=== PATIENT | female | born 1985 | race Caucasian/White ===

== ENCOUNTER 2016-07-05 08:33 | Emergency (ER) | payer BC ==
[~2016-07-05] VITALS: Ht 177.8 cm; Wt 68.0 kg
[2016-07-05] MEDS ORDERED: NORE0.357 (08:51)
--- NOTE | 2016-07-05 09:50 | Diagnostic Imaging Report ---
Clinical indication: Patient fell down the steps this morning. Patient complains of pain on lateral side and ankle area. Patient has swelling of ankle bone. No bruising seen. Exams: 1: X-ray of the left foot, 3 views. 2: X-ray of the left ankle, 3 views. Comparison: None. Findings: There are curvilinear flecks of calcification seen dorsal to the navicular bone and talar neck/head region seen on the lateral views of the left foot and ankle. These are concerning for avulsion fractures. There is soft tissue swelling seen dorsal to the region. There are no other areas of fracture or dislocation seen involving the left foot or ankle. Ankle mortise and syndesmotic joints are unremarkable. There is soft tissue thickening seen medially adjacent to the first MTP joint which may be related to bunion with mild hallux valgus deformity seen. Impression: 1: There are small flecks of calcification seen dorsally adjacent to the talar head/neck junction region and navicular bone concerning for avulsion fractures. 2: There is no other concern for fracture or dislocation involving left foot or ankle. 3: Mild hallux valgus deformity. Dictated by: Dictated on workstation # [id number]
--- NOTE | 2016-07-05 09:55 | ED Lower Extremity ---
General Chief Complaint: Lower Extremity Stated Complaint: FALL/LEFT ANKLE INJURY Nursing Triage Note: AMBULATED TO ROOM 08 WITH COMPLAINTS OF LEFT ANKLE ET LOWER LEG PAIN AFTER FALLING DOWN X2 STAIRS THIS AM. STATES SHE DID NOT HIT HER HEAD. Nursing Sepsis Screen: No Definite Risk Source: patient Exam Limitations: no limitations History of Present Illness Time seen by provider: 09:15 Initial Comments Here with report of left ankle left foot pain after falling down 2 stairs this morning. She states that she tripped from the dog. Complains of pain to the left foot and ankle with some radiation of the left leg. Denies other injury. Does note bruising to the lateral aspect of the foot. Onset: this morning Severity: moderate Pain/Injury Location: left foot, left ankle Method of Injury: fell, twisted Modifying Factors: Improves With Immobilization, Worse With Movement Allergies and Home Medications Allergies Coded Allergies: No Known Drug Allergies (Unverified , 03/21/14) Home Medications Norethindrone 0.35 Mg Tablet, #84 (Reported) Constitutional: see HPI, No chills, No fever Respiratory: no symptoms reported Cardiovascular: no symptoms reported Musculoskeletal: see HPI, joint pain, joint swelling, muscle pain, muscle stiffness Skin: see HPI, change in color, No lesions Psychiatric/Neurological: No Symptoms Reported Past Iiqfkoj-Acdurr-Wpctqx Hx Patient Social History Alcohol Use: Denies Use Recreational Drug Use: No Smoking Status: Never a Smoker Recent Foreign Travel: No Contact w/Someone Who Travel: No Recent Infectious Disease Expo: No Recent Hopitalizations: Yes (GAVE ) Immunizations Up To Date Date of Influenza Vaccine: Dec 31, 2013 Surgeries HX Surgeries: No Respiratory Hx Respiratory Disorders: No Cardiovascular Hx Cardiac Disorders: No Neurological Hx Neurological Disorders: No Genitourinary Hx Genitourinary Disorders: No Gastrointestinal Hx Gastrointestinal Disorders: No Musculoskeletal Hx Musculoskeletal Disorders: No Endocrine Hx Endocrine Disorders: No HEENT HX ENT Disorders: No Cancer Hx Cancer: No Psychosocial Hx Psychiatric Problems: No Reviewed Nursing Assessment Reviewed/Agree w Nursing PMH: Yes Family Medical History Significant Family History: No Pertinent Family Hx Physical Exam Vital Signs Vital Sign - Last 12Hours 07/05/16 08:40 Temp 98.0 Pulse 73 Resp 16 B/P (MAP) 116/67 Pulse Ox 98 O2 Delivery Room Air Capillary Refill : Less Than 3 Seconds General Appearance: WD/WN, no apparent distress Cardiovascular: regular rate, rhythm, no murmur Respiratory: lungs clear, normal breath sounds Legs: left leg soft tissue tenderness (distal tib-fib area), left leg swelling (distal tib-fib area) Ankles: left ankle ecchymosis, left ankle pain, left ankle soft tissue tenderness, left ankle swelling Feet: left foot ecchymosis, left foot pain, left foot soft tissue tenderness, left foot swelling Neurologic/Psychiatric: alert, oriented x 3 Skin: ecchymosis Progress/Results/Core Measures Results/Orders My Orders Orders - KHANG JOHNS MD Foot, Left, 3 Views (07/05/16 09:25) Ankle, Left, 3 Views (07/05/16 09:25) Vital Signs/I&O Vital Sign - Last 12Hours 07/05/16 08:40 Temp 98.0 Pulse 73 Resp 16 B/P (MAP) 116/67 Pulse Ox 98 O2 Delivery Room Air Blood Pressure Mean: 83 Progress Note : Progress Note Seen and evaluated. X-ray left foot and ankle ordered. Monitor patient. Patient declined pain medicine at this time. She has crutches with her. We will assist with adjustment to her size. 1015: Walking boot placed. Patient informed of concerns for avulsion-type fracture. She will follow-up with orthopedist of her choosing. Discharged home with return precautions. Patient verbalize understanding instructions and agreement with plan. Diagnostic Imaging Diagonstic Imaging: Xray Plain Films/CT/US/NM/MRI: ankle Comments NAME: ONDINA VELAZQUEZ MED REC#: [id number] PT STATUS: REG ER : 1985 PHYSICIAN: KHANG JOHNS MD ADMIT DATE: 07/05/16/ER Signed Date of Exam: 07/05/16 ANKLE, LEFT, 3 VIEWS Clinical indication: Patient fell down the steps this morning. Patient complains of pain on lateral side and ankle area. Patient has swelling of ankle bone. No bruising seen. Exams: 1: X-ray of the left foot, 3 views. 2: X-ray of the left ankle, 3 views. Comparison: None. Findings: There are curvilinear flecks of calcification seen dorsal to the navicular bone and talar neck/head region seen on the lateral views of the left foot and ankle. These are concerning for avulsion fractures. There is soft tissue swelling seen dorsal to the region. There are no other areas of fracture or dislocation seen involving the left foot or ankle. Ankle mortise and syndesmotic joints are unremarkable. There is soft tissue thickening seen medially adjacent to the first MTP joint which may be related to bunion with mild hallux valgus deformity seen. Impression: 1: There are small flecks of calcification seen dorsally adjacent to the talar head/neck junction region and navicular bone concerning for avulsion fractures. 2: There is no other concern for fracture or dislocation involving left foot or ankle. 3: Mild hallux valgus deformity. Dictated by: Dictated on workstation # [id number] Dict: 07/05/16 0943 Trans: 07/05/16 0947 Interpreted by: ADIS MURPHY MD Diagonstic Imaging: Xray Plain Films/CT/US/NM/MRI: other (foot) Comments NAME: ONDINA VELAZQUEZ [facility] REC#: [id number] PT STATUS: REG ER : 1985 PHYSICIAN: KHANG JOHNS MD ADMIT DATE: 07/05/16/ER Signed Date of Exam: 07/05/16 FOOT, LEFT, 3 VIEWS Clinical indication: Patient fell down the steps this morning. Patient complains of pain on lateral side and ankle area. Patient has swelling of ankle bone. No bruising seen. Exams: 1: X-ray of the left foot, 3 views. 2: X-ray of the left ankle, 3 views. Comparison: None. Findings: There are curvilinear flecks of calcification seen dorsal to the navicular bone and talar neck/head region seen on the lateral views of the left foot and ankle. These are concerning for avulsion fractures. There is soft tissue swelling seen dorsal to the region. There are no other areas of fracture or dislocation seen involving the left foot or ankle. Ankle mortise and syndesmotic joints are unremarkable. There is soft tissue thickening seen medially adjacent to the first MTP joint which may be related to bunion with mild hallux valgus deformity seen. Impression: 1: There are small flecks of calcification seen dorsally adjacent to the talar head/neck junction region and navicular bone concerning for avulsion fractures. 2: There is no other concern for fracture or dislocation involving left foot or ankle. 3: Mild hallux valgus deformity. Dictated by: Dictated on workstation # [id number] Dict: 07/05/1644 Trans: 07/05/16946 Interpreted by: ADIS MURPHY MD Electronically signed by: ADIS MURPHY MD 07/05/16946 Departure Impression Impression: Primary Impression: Avulsion fracture of talus Qualified Codes: S92.155A - Nondisplaced avulsion fracture (chip fracture) of left talus, initial encounter for closed fracture Disposition: HOME, SELF-CARE Condition: Improved Departure-Patient Inst. Decision time for Depature: 10:18 Referrals: JAYME VAUGHAN MD, BRIAN J MD NO,LOCAL PHYSICIAN (PCP) Primary Care Physician OTTO SHIELDS MICHAEL P MD Patient Instructions: Ankle Sprain (DC) Add. Discharge Instructions: All discharge instructions reviewed with patient and/or family. Voiced understanding. You have avulsion type fracture of the ligaments to the lateral aspect of the left ankle. You should follow-up with an orthopedist of your choice. Call today to set up appointment. Use ice packs to area of concern 20 minutes per hour to reduce swelling as needed over the next couple of days. Use walking boot when moving around. You do not need to wear this while sleeping. Use crutches to assist with walking for the next several days and then as needed. You may take ibuprofen 600 mg every 8 hours as needed for pain. You may take Tylenol 1000 mg every 8 hours as needed for pain. Return for worse pain, swelling, numbness or tingling or other concerns as needed. KHANG JOHNS MD Jul 05, 2016 09:55
[2016-07-05 10:30] VITALS: BP 116/67
== END 2016-07-05 10:30 | disposition home or self-care (01) ==
LOC: EDUNIT# 08:33 → ER 08:36
DX: S92.155A Nondisplaced avulsion fracture (chip fracture) of left talus, initial encounter for closed fracture (principal); W10.9XXA Fall (on) (from) unspecified stairs and steps, initial encounter; Y92.009 Unspecified place in unspecified non-institutional (private) residence as the place of occurrence of the external cause; Y99.8 Other external cause status
CPT/HCPCS: 73610; 73630; 99283

== ENCOUNTER 2022-02-04 04:14 | Emergency (ER) | payer BC ==
[~2022-02-04] VITALS: Ht 160 cm; Wt 61.2 kg
[~2022-02-04 04:14] MED LIST: NORE0.357
[2022-02-04] MEDS ORDERED: ONDANSETRON 4 MG (ZOFRAN) ORAL DISSOLVE TAB PO STA (04:34)
--- NOTE | 2022-02-04 04:36 | ED Fall/Injury ---
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 STATES SHE "PASSED OUT AND WOKE UP ON THE FLOOR". Source: patient Exam Limitations: no limitations History of Present Illness Date Seen by Provider: Feb 04, 2022 Time Seen by Provider: 04:25 Initial Comments 36-year-old female presents to the emergency department via private vehicle after she fell, striking the left side of her head on the bathtub. She states she was not feeling well and got up as she had to have a bowel movement and was feeling nauseated. She clammy, sweaty while she was sitting on the toilet. She got up and immediately passed out. She woke up and was bleeding from the left side of her head. She has no neck pain no other injuries. She is unclear when her last tetanus shot was. She is still feeling slightly nauseated but otherwise feels well. She has not vomited. No blurred or double vision. No upper or lower extremity weakness numbness or tingling. She did not have any chest pain or shortness of breath prior to passing out. Allergies and Home Medications Allergies Coded Allergies: No Known Drug Allergies (Unverified , 03/21/14) Patient Home Medication List Home Medication List Reviewed: Yes Norethindrone (Jolivette) 0.35 Mg Tablet, (Reported) Entered as Reported by: SAKSHI MOORE on 07/05/16 0851 Ondansetron (Ondansetron Odt) 8 Mg Tab.rapdis, 8 MG SL Q4H PRN for NAUSEA /VOMITING Prescribed by: PANCHO CH MD on 02/04/22 0437 Review of Systems Review of Systems Constitutional: no symptoms reported Eyes: No Symptoms Reported Ears, Nose, Mouth, Throat: no symptoms reported Respiratory: no symptoms reported Cardiovascular: no symptoms reported Gastrointestinal: no symptoms reported Genitourinary: no symptoms reported Musculoskeletal: other (Pain with the left side of her head) Skin: other (Laceration, bleeding) Psychiatric/Neurological: Headache, Other (Syncope) Past Ajnyiwr-Xceqrt-Dlorod Hx Patient Social History Tobacco Use?: No Use of E-Cig and/or Vaping dev: No Substance use?: No Alcohol Use?: No Alcohol Frequency: Once in a while Immunizations Up To Date COVID19 Vaccine Cloth Bin Packer: LESLEYNhi Family Medical History Reviewed Nursing Family Hx No Pertinent Family Hx Physical Exam Vital Signs Vital Signs - First Documented 02/04/22 04:22 Temp 35.9 Pulse 65 Resp 16 B/P (MAP) 102/69 (80) Pulse Ox 98 O2 Delivery Room Air Capillary Refill : Height, Weight, BMI Height: 5'10.00" Weight: 150lbs. oz. 68.990013vy; BMI Method:Stated General Appearance: WD/WN, no apparent distress HEENT: PERRL/EOMI, normal ENT inspection, TMs normal, pharynx normal Neck: non-tender, full range of motion, supple, normal inspection Cardiovascular: regular rate, rhythm, no edema, no gallop, no JVD, no murmur Respiratory: chest non-tender, lungs clear, normal breath sounds, no respiratory distress, no accessory muscle use Gastrointestinal: normal bowel sounds, non tender, soft, no organomegaly, no pulsatile mass Back: normal inspection, no vertebral tenderness Extremities: normal range of motion, non-tender, normal inspection, no pedal edema, no calf tenderness, normal capillary refill Neurologic/Psychiatric: steam gigger II-XII nml as tested, no motor/sensory deficits, alert, normal mood/affect, oriented x 3 Skin: other (2 cm laceration left anterior scalp. Galea is intact.) Lymphatic: no adenopathy Procedures/Interventions Wound Location: Scalp Wound Length (cm): 2 Staple Repair: Stapler 35W Number of Sutures: 3 Progress/Results/Core Measures Results/Orders My Orders Orders - PANCHO CH DO Ondansetron Oral Dissolve Tab (Zofran (02/04/22 04:34) Dipht,Pertuss(Acell),Tet Adult (Boostrix (02/04/22 04:45) Lidocaine 1% Inj 10 Ml (Xylocaine 1% Inj (02/04/22 04:45) Hydrocodone/Apap 5/325 Tablet (Lortab 5 (02/04/22 04:45) Vital Signs/I&O 02/04/22 04:22 Temp 35.9 Pulse 65 Resp 16 B/P (MAP) 102/69 (80) Pulse Ox 98 O2 Delivery Room Air Departure Communication (Admissions) Patient is hemodynamically stable, alert oriented. Consideration for possible CT scanning however her story is classic for vasovagal syncope as it is associated with bowel movement and nausea, diaphoresis just prior. I think she is likely at the onset of a GI bug which caused a vasovagal episode. There is no indication of a cardiac origin. She is not diabetic, no reason to think that she had a hypoglycemic episode. No indication of electrolyte derangement. She is now back to normal mental baseline and only has a headache in the area of laceration. She is unsure when her last tetanus shot was and this was updated here today. She is given pain and nausea medicine and the wound was copiously irrigated, anesthetized with lidocaine and kali. She tolerated this well without complication. Impression Primary Impression: Vasovagal episode Additional Impression: Scalp laceration Qualified Codes: S01.01XA - Laceration without foreign body of scalp, initial encounter Disposition: HOME, SELF-CARE Condition: Stable Departure-Patient Inst. Referrals: NO,LOCAL PHYSICIAN (PCP/Family) Primary Care Physician Patient Instructions: Syncope (Fainting), Laceration Repair With Kali ED Add. Discharge Instructions: Use the nausea medication as needed. Have the kali removed in about 10 days. Your tetanus shot was updated in the ER today. All discharge instructions reviewed with patient and/or family. Voiced understanding. Scripts Ondansetron (Ondansetron Odt) 8 Mg Tab.rapdis 8 MG SL Q4H PRN for NAUSEA/VOMITING for 3 Days, #18 TAB Prov: PANCHO CH DO 02/04/22 PANCHO CH DO Feb 04, 2022 04:36
[2022-02-04] MEDS ORDERED: ONDA8TAB13 SL (04:37)
[2022-02-04] MEDS ORDERED: LIDOCAINE 1% INJ 10 ML VIAL INJ ONE (04:45)
[2022-02-04] MEDS ORDERED: HYDROcodone/APAP 5 MG/325 MG (LORTAB) TAB PO ONE (04:45)
[2022-02-04] MEDS ORDERED: TETANUS,DIPTH,PERTUSS P/F (BOOSTRIX) 0.5 ML VIAL IM ONE (04:45)
[2022-02-04 04:54] VITALS: BP 102/69
== END 2022-02-04 05:02 | disposition home or self-care (01) ==
LOC: EDUNIT# 04:14 → ER 04:16
DX: R55 Syncope and collapse (principal); S01.01XA Laceration without foreign body of scalp, initial encounter; Z23 Encounter for immunization; W18.30XA Fall on same level, unspecified, initial encounter; W22.8XXA Striking against or struck by other objects, initial encounter
CPT/HCPCS: 90715